=== PATIENT | female | born 1995 | race African-American/Black ===

== ENCOUNTER 2021-06-09 11:03 | Emergency (ER) | payer SELFPAY ==
[~2021-06-09] VITALS: Ht 165.1 cm; Wt 86.4 kg
[~2021-06-09 11:03] MED LIST: AMOXICILLIN 8751 TAB PO; NAPROSYN 2250 MG/TAB PO; PREDNISONE20 MG PO; PROAIR HFA0.09 MG/AC IH; ZYRTEC 10MG10 MG PO
[2021-06-09 11:20] VITALS: TEMP 98.7
[2021-06-09] MEDS ORDERED: NORCO 325 MG-51 TAB PO (14:48)
[2021-06-09 15:49] VITALS: BP 125/67; PULSE 82
== END 2021-06-09 15:50 | disposition home or self-care (01) ==
LOC: COL.ER 11:03
DX: S62.316A Displaced fracture of base of fifth metacarpal bone, right hand, initial encounter for closed fracture (principal); J45.909 Unspecified asthma, uncomplicated; Z88.2 Allergy status to sulfonamides; Z79.52 Long term (current) use of systemic steroids; W22.8XXA Striking against or struck by other objects, initial encounter

== ENCOUNTER 2021-06-27 17:34 | Emergency (ER) | payer SELFPAY ==
[~2021-06-27] VITALS: Ht 165.1 cm; Wt 86.4 kg
[~2021-06-27 17:34] MED LIST changes: +NORCO 325 MG-51 TAB PO
[2021-06-27 21:15] VITALS: BP 123/76; PULSE 71; TEMP 97.9
== END 2021-06-27 21:45 | disposition home or self-care (01) ==
LOC: COL.ER 17:34
DX: U07.1 COVID-19 (principal); J44.9 Chronic obstructive pulmonary disease, unspecified; Z79.899 Other long term (current) drug therapy

== ENCOUNTER 2022-02-19 09:37 | Emergency (ER) | payer SELFPAY ==
[~2022-02-19] VITALS: Ht 165.1 cm; Wt 90.0 kg
[2022-02-19 09:42] VITALS: TEMP 98.3
[2022-02-19 10:33] LABS: BASO # 0.1 K/mm3 (0.0-0.2); BASO % 0.7 % (0.0-2.0); EOS # 0.1 K/mm3 (0.0-0.7); EOS % 1.6 % (0.0-4.0); GRAN # 5.3 K/mm3 (1.4-6.5); GRAN % 69.6 % (42.2-75.2); HEMATOCRIT 37.4 % (37.0-47.0); LYMPH # 1.6 K/mm3 (1.2-3.4); LYMPH % 21.3 % (20.0-51.0); MEAN CELL VOLUME 83 fl (80.0-100.0); MEAN CORPUSCULAR HEMOGLOBIN 27 pg (27-31); MEAN CORPUSCULAR HGB CONC 32 g/dl (33.0-37.0); MONO # 0.5 K/mm3 (0.1-0.6); MONO % 6.5 % (1.7-9.3); PLATELET COUNT 319 K/mm3 (130-400); RED BLOOD COUNT 4.53 M/mm3 (4.10-5.30); REDCELL DISTRIBUTION WIDTH-CV 13.5 % (11.5-14.5)
[2022-02-19 10:56] LABS: BILIRUBIN,TOTAL 0.2 mg/dL (0.2-1.2); CALCIUM 9.1 mg/dL (8.4-10.2); CREATININE, serum 0.92 mg/dL (0.57-1.11); POTASSIUM 3.8 mmol/L (3.5-4.5); TOTAL PROTEIN 7.7 gm/dL (6.2-8.1)
[2022-02-19 11:15] LABS: PROLACTIN 12.1 ng/mL (5.18-26.53)
[2022-02-19 12:15] VITALS: BP 111/71; PULSE 86
== END 2022-02-19 12:15 | disposition home or self-care (01) ==
LOC: COL.ER 09:37
PROVIDERS: Family Medicine
DX: S06.0X9A Concussion with loss of consciousness of unspecified duration, initial encounter (principal); R55 Syncope and collapse; F17.210 Nicotine dependence, cigarettes, uncomplicated; W01.198A Fall on same level from slipping, tripping and stumbling with subsequent striking against other object, initial encounter; Y93.01 Activity, walking, marching and hiking; Y92.219 Unspecified school as the place of occurrence of the external cause